=== PATIENT | female | born 1985 | race Caucasian/White ===

== ENCOUNTER 2017-08-13 19:13 | Emergency (ER) | payer OTHER ==
[~2017-08-13] VITALS: Ht 162.6 cm; Wt 81.7 kg
[~2017-08-13 19:13] MED LIST: ALBU90OI INH; ALPR1 PO; AMOX500 PO; ARIP10 PO; ARIPIPRAZOLE PO; ATOM60; BENZ100A PO; BUPR75 PO; BUSP15; CEPH500 PO; CIPR500 PO; CITA20 PO; CLON1; CLON1 PO; Cleocin HCl300 MG PO; DOXY100 PO; DULO30 PO; DULO60; EFFEXOR XR; ENOX40I SC; GABA100 PO; GABA300 PO; HYDACE10B PO; HYDACE5 PO; HYDACE5325 PO; HYDR1TAB94 PO; IBUP800 PO; Keflex500 MG PO; LAMO100 PO; LAMO25; LAMO25 PO; LORA1 PO; METERG.2 PO; METH10 PO; METH40 PO; METPRE4DP PO; MULVITMINE; NAPR220 PO; NAPR500 PO; NAPR550 PO; NICO21TP TOP; Naprosyn500 MG PO; Neurontin 300300 MG PO; OXYACE5T PO; PARO20 PO; PENVK250 PO; PENVK500 PO; PRED10 PO; PRED20 PO; Phenergan25 M1 PO; RANI150 PO; RXPENVK250 PO; RXTRAM50 PO; SUBOXONE 2 MG-1 EACH SL; SUBOXONE 8 MG-1 EACH SL; SULTRIDS PO; SULTRISS PO; Subutex; TOPI100 PO; TOPI25 PO; TRAM50 PO; TRAZ100; TRAZ100 PO; Ultram50 MG PO; VENL150ER; VENL150ER PO; VENL25; VENL75 PO; VENL75ER; VENL75ER PO; Veetids 500500 MG PO; [UNRECOGNIZED DRUG - REMARK]
[2017-08-13] MEDS ORDERED: Amphetamine Sal20 MG PO (19:28)
[2017-08-13] MEDS ORDERED: GABA300 PO (19:29)
[2017-08-13 19:47] LABS: BASOPHILS ABSOLUTE AUTO 0.05 K/mm3 (0.00-0.23); BASOPHILS PERCENT AUTO 1 % (0-2); EOSINOPHILS ABSOLUTE AUTO 0.54 K/mm3 (0.00-0.68); EOSINOPHILS PERCENT AUTO 8 % (0-6); Hematocrit 32.9 % (33.0-51.0); Hemoglobin 9.9 g/dL (11.5-16.0); IMMATURE GRAN ABSOLUTE AUTO 0.01 K/mm3 (0.00-0.10); IMMATURE GRAN PERCENT AUTO 0 % (0-1); LYMPHOCYTES ABSOLUTE AUTO 2.04 K/mm3 (0.84-5.20); LYMPHOCYTES PERCENT AUTO 31 % (21-46); MONOCYTES PERCENT AUTO 11 % (4-13); Mean Corpuscular HGB Conc 30.1 g/dL (31.5-36.5); Mean Corpuscular Volume 80 fL (80-100); Mean Platelet Volume 11.1 fL (9.1-12.4); NEUTROPHILS ABSOLUTE AUTO 3.32 K/mm3 (1.96-9.15); NEUTROPHILS PERCENT AUTO 50 % (41-73); Platelet Count 229 K/mm3 (150-400); RDW Coefficient Variation 20.6 % (11.7-14.2); RDW Standard Deviation 59.6 fL (35.1-46.3); Red Blood Cell Count 4.13 M/mm3 (3.80-5.20); White Blood Cell Count 6.66 K/mm3 (4.00-11.30)
[2017-08-13 20:17] LABS: Alanine Aminotransfer (ALT/SGP 26 U/L (12-78); Albumin, Blood 3.6 g/dL (3.4-5.0); Alk Phos 79 U/L (50-136); Anion Gap 6 mmol/L (6-16); Aspartate Aminotrans (AST/SGOT 24 U/L (12-37); Bilirubin, Total 0.2 mg/dL (0.1-1.0); Blood Urea Nitrogen 13 mg/dL (8-24); Bun/Creatinine Ratio 15.9 (12.0-20.0); CO2, Blood 29 mmol/L (21-32); Calcium, Blood 8.7 mg/dL (8.5-10.1); Chloride, Blood 105 mmol/L (98-108); Creatinine, Blood 0.82 mg/dL (0.40-1.00); Globulin, Blood 3.5 g/dL (2.2-4.0); Glomerular Filtration Rate >60 (60-); Glucose, Blood 97 mg/dL (70-99); Potassium, Blood 3.6 mmol/L (3.5-5.5); Sodium, Blood 140 mmol/L (136-145); Total Protein, Blood 7.1 g/dL (6.4-8.2); Troponin I <0.015 ng/mL (0.000-0.040)
[2017-08-13] MEDS ORDERED: Zantac150 MG PO (20:43)
== END 2017-08-13 20:55 | disposition home or self-care (01) ==
LOC: ER 19:13
PROVIDERS: Emergency Medicine
DX: R07.9 Chest pain, unspecified (principal); F41.0 Panic disorder [episodic paroxysmal anxiety]; K21.9 Gastro-esophageal reflux disease without esophagitis; F17.210 Nicotine dependence, cigarettes, uncomplicated; Z79.899 Other long term (current) drug therapy
CPT/HCPCS: 36415; 71046; 80053; 84484; 85025; 93005; 93010; 99283

== ENCOUNTER 2017-10-23 12:27 | Emergency (ER) | payer OTHER ==
[~2017-10-23 12:27] MED LIST changes: +Amphetamine Sal20 MG PO; +Zantac150 MG PO
== END 2017-10-23 13:05 | disposition left against medical advice (07) ==
LOC: ER 12:27
DX: Z53.21 Procedure and treatment not carried out due to patient leaving prior to being seen by health care provider (principal)

== ENCOUNTER 2018-08-28 14:11 | Emergency (ER) | payer OTHER ==
[~2018-08-28] VITALS: Ht 162.6 cm; Wt 86.2 kg
[2018-08-28] MEDS ORDERED: LAMO25 (15:08)
[2018-08-28] MEDS ORDERED: SUBOXONE 8 MG-1 EACH SL (15:08)
[2018-08-28] MEDS ORDERED: TROKENDI XR25 MG (15:09)
[2018-08-28] MEDS ORDERED: ALBU90OI INH (15:48)
[2018-08-28] MEDS ORDERED: Voltaren100 GM TOP (15:48)
[2018-08-28] MEDS ORDERED: Prednisone20 MG PO (15:48)
== END 2018-08-28 16:03 | disposition home or self-care (01) ==
LOC: ER 14:11
DX: R05 Cough (principal); Z79.899 Other long term (current) drug therapy; F41.9 Anxiety disorder, unspecified; F17.210 Nicotine dependence, cigarettes, uncomplicated
CPT/HCPCS: 71046; 93005; 93010; 99283-25

== ENCOUNTER → 2018-08-30 | Outpatient (CLI) | payer OTHER ==
[~2018-08-30] MED LIST changes: +Prednisone20 MG PO; +TROKENDI XR25 MG; +Voltaren100 GM TOP
[2018-08-30 15:42] LABS: BASOPHILS ABSOLUTE AUTO 0.05 K/mm3 (0.00-0.23); BASOPHILS PERCENT AUTO 1 % (0-2); EOSINOPHILS ABSOLUTE AUTO 0.27 K/mm3 (0.00-0.68); EOSINOPHILS PERCENT AUTO 4 % (0-6); Hematocrit 36.3 % (33.0-51.0); Hemoglobin 12.2 g/dL (11.5-16.0); IMMATURE GRAN ABSOLUTE AUTO 0.01 K/mm3 (0.00-0.10); IMMATURE GRAN PERCENT AUTO 0 % (0-1); LYMPHOCYTES ABSOLUTE AUTO 2.59 K/mm3 (0.84-5.20); LYMPHOCYTES PERCENT AUTO 41 % (21-46); MONOCYTES ABSOLUTE AUTO 0.52 K/mm3 (0.16-1.47); MONOCYTES PERCENT AUTO 8 % (4-13); Mean Corpuscular HGB 30.3 pg (26.0-34.0); Mean Corpuscular HGB Conc 33.6 g/dL (31.5-36.5); Mean Corpuscular Volume 90 fL (80-100); Mean Platelet Volume 11.4 fL (9.1-12.4); NEUTROPHILS ABSOLUTE AUTO 2.83 K/mm3 (1.96-9.15); NEUTROPHILS PERCENT AUTO 45 % (41-73); Platelet Count 210 K/mm3 (150-400); RDW Coefficient Variation 13.2 % (11.7-14.2); RDW Standard Deviation 43.5 fL (35.1-46.3); Red Blood Cell Count 4.03 M/mm3 (3.80-5.20); White Blood Cell Count 6.27 K/mm3 (4.00-11.30)
[2018-08-30 15:55] LABS: Anion Gap 11 mmol/L (6-16); Blood Urea Nitrogen 6 mg/dL (8-24); Bun/Creatinine Ratio 7.3 (12.0-20.0); CO2, Blood 25 mmol/L (21-32); Calcium, Blood 8.2 mg/dL (8.5-10.1); Chloride, Blood 107 mmol/L (98-108); Creatinine, Blood 0.82 mg/dL (0.40-1.00); Glomerular Filtration Rate >60 (60-); Glucose, Blood 95 mg/dL (70-99); Potassium, Blood 3.4 mmol/L (3.5-5.5); Sodium, Blood 143 mmol/L (136-145); Troponin I <0.015 ng/mL (0.000-0.040)
== END | disposition home or self-care (01) ==
LOC: LAB SHORT 15:36 → LAB EV 15:36
PROVIDERS: Family Medicine
DX: R07.9 Chest pain, unspecified (principal)
CPT/HCPCS: 80048; 84484; 85025; 85379

== ENCOUNTER 2018-10-08 16:07 | Emergency (ER) | payer OTHER ==
[~2018-10-08] VITALS: Ht 162.6 cm; Wt 81.7 kg
== END 2018-10-08 18:16 | disposition left against medical advice (07) ==
LOC: ER 16:07
DX: Z53.21 Procedure and treatment not carried out due to patient leaving prior to being seen by health care provider (principal)
CPT/HCPCS: 71046

== ENCOUNTER 2018-10-30 22:37 | Emergency (ER) | payer OTHER ==
[~2018-10-30] VITALS: Ht 162.6 cm; Wt 83.5 kg
[2018-10-30] MEDS ORDERED: Abilify2 MG (22:55)
[2018-10-30] MEDS ORDERED: Vyvanse20 MG (22:55)
[2018-10-30] MEDS ORDERED: PROM25 (22:56)
[2018-10-30] MEDS ORDERED: CEPH500 PO (23:04)
== END 2018-10-30 23:19 | disposition home or self-care (01) ==
LOC: ER 22:37
DX: L03.211 Cellulitis of face (principal); F42.4 Excoriation (skin-picking) disorder; Z79.899 Other long term (current) drug therapy; F41.9 Anxiety disorder, unspecified; F17.210 Nicotine dependence, cigarettes, uncomplicated
CPT/HCPCS: 99282

== ENCOUNTER 2018-11-07 22:18 | Emergency (ER) | payer OTHER ==
[~2018-11-07] VITALS: Ht 162.6 cm; Wt 81.7 kg
[~2018-11-07 22:18] MED LIST changes: +Abilify2 MG; +PROM25; +Vyvanse20 MG
[2018-11-07] MEDS ORDERED: CEPH500 PO (23:16)
[2018-11-09] MEDS ORDERED: SUBOXONE 8 MG-1 EACH PO (08:47)
[2018-11-09] MEDS ORDERED: PROM25 PO (08:47)
[2018-11-09] MEDS ORDERED: ARIP15 PO (08:47)
[2018-11-09] MEDS ORDERED: TOPI100 PO (08:47)
[2018-11-09] MEDS ORDERED: LAMO25 (08:48)
== END 2018-11-08 01:14 | disposition home or self-care (01) ==
LOC: ER 22:18
DX: L03.211 Cellulitis of face (principal); Z79.899 Other long term (current) drug therapy; F41.9 Anxiety disorder, unspecified; F17.210 Nicotine dependence, cigarettes, uncomplicated
CPT/HCPCS: 96365; 99283-25; J0696; J7030

== ENCOUNTER 2018-11-09 08:25 | Emergency (ER) | payer OTHER ==
[~2018-11-09] VITALS: Ht 162.6 cm; Wt 72.6 kg
[2018-11-09] MEDS ORDERED: SUBOXONE 8 MG-1 EACH PO (08:47)
[2018-11-09] MEDS ORDERED: PROM25 PO (08:47)
[2018-11-09] MEDS ORDERED: TOPI100 PO (08:47)
[2018-11-09] MEDS ORDERED: ARIP15 PO (08:47)
[2018-11-09] MEDS ORDERED: LAMO25 (08:48)
== END 2018-11-09 09:18 | disposition home or self-care (01) ==
LOC: ER 08:25
DX: S01.102D Unspecified open wound of left eyelid and periocular area, subsequent encounter (principal); F41.9 Anxiety disorder, unspecified; F17.210 Nicotine dependence, cigarettes, uncomplicated; Z79.899 Other long term (current) drug therapy; X58.XXXD Exposure to other specified factors, subsequent encounter
CPT/HCPCS: 99282

== ENCOUNTER 2018-12-06 21:59 | Emergency (ER) | payer OTHER ==
[~2018-12-06] VITALS: Ht 162.6 cm; Wt 81.7 kg
[~2018-12-06 21:59] MED LIST changes: +ARIP15 PO; +PROM25 PO; +SUBOXONE 8 MG-1 EACH PO
[2018-12-07] MEDS ORDERED: Bactrim Ds Tab1 EACH PO (00:31)
== END 2018-12-07 00:46 | disposition home or self-care (01) ==
LOC: ER 21:59
DX: L08.9 Local infection of the skin and subcutaneous tissue, unspecified (principal); F41.9 Anxiety disorder, unspecified; F17.210 Nicotine dependence, cigarettes, uncomplicated; Z79.899 Other long term (current) drug therapy
CPT/HCPCS: 99282

== ENCOUNTER 2018-12-15 12:37 | Emergency (ER) | payer OTHER ==
[~2018-12-15] VITALS: Ht 162.6 cm; Wt 83.9 kg
[~2018-12-15 12:37] MED LIST changes: +Bactrim Ds Tab1 EACH PO
[2018-12-15] MEDS ORDERED: EMVERM100 MG PO (14:17)
== END 2018-12-15 15:16 | disposition home or self-care (01) ==
LOC: ER 12:37
DX: B83.9 Helminthiasis, unspecified (principal); F15.90 Other stimulant use, unspecified, uncomplicated; Z79.899 Other long term (current) drug therapy; F41.9 Anxiety disorder, unspecified; F17.210 Nicotine dependence, cigarettes, uncomplicated
CPT/HCPCS: 99282

== ENCOUNTER → 2019-03-26 | Outpatient (CLI) | payer OTHER ==
[~2019-03-26] MED LIST changes: +AMPDEX5 PO; +BUPRENORPHINE HC8 MG SL; +Cleocin HCl150 MG PO; +EMVERM100 MG PO; +FERSU300 PO; +METHYLERGO0.2 MG/1 M PO; +MUPIROCIN1 GM TOP; +Vyvanse70 MG PO
[2019-03-26 18:35] LABS: U Amphetamine Screen DETECTED; U Barbituate Screen Not Detected; U Benzodiazapine Screen Not Detected; U Buprenorphine Screen DETECTED; U Cannabinoids Screen Not Detected; U Cocaine Screen Not Detected; U Methadone Screen Not Detected; U Methamphetamine Screen Not Detected; U Opiates Screen Not Detected; U Oxycodone Screen Not Detected; U Phencyclidine Screen Not Detected; U Propoxyphene Screen Not Detected
== END ==
LOC: EDSTATUS 12:08 → LAB 17:51 → LAB SHORT 17:51
PROVIDERS: Student in an Organized Health Care Education/Training Program
DX: Z51.81 Encounter for therapeutic drug level monitoring (principal); Z79.899 Other long term (current) drug therapy

== ENCOUNTER 2019-04-02 11:55 | Emergency (ER) | payer OTHER ==
[~2019-04-02] VITALS: Ht 162.6 cm; Wt 92.5 kg
[~2019-04-02 11:55] MED LIST changes: -AMPDEX5 PO; -BUPRENORPHINE HC8 MG SL; -Cleocin HCl150 MG PO; -FERSU300 PO; -METHYLERGO0.2 MG/1 M PO; -MUPIROCIN1 GM TOP; -Vyvanse70 MG PO
[2019-04-02] MEDS ORDERED: Cleocin HCl150 MG PO (13:32)
[2019-04-02] MEDS ORDERED: MUPIROCIN1 GM TOP (13:32)
== END 2019-04-02 13:42 | disposition home or self-care (01) ==
LOC: ER 11:55
DX: O99.711 Diseases of the skin and subcutaneous tissue complicating pregnancy, first trimester (principal); L01.00 Impetigo, unspecified; Z3A.13 13 weeks gestation of pregnancy; Z88.8 Allergy status to other drugs, medicaments and biological substances; Z79.899 Other long term (current) drug therapy; O99.341 Other mental disorders complicating pregnancy, first trimester; F41.9 Anxiety disorder, unspecified; O99.331 Smoking (tobacco) complicating pregnancy, first trimester; F17.210 Nicotine dependence, cigarettes, uncomplicated
CPT/HCPCS: 99282

== ENCOUNTER 2019-04-17 14:45 | Inpatient (IN) | payer OTHER ==
[~2019-04-17] VITALS: Ht 162.6 cm; Wt 88.5 kg
[~2019-04-17 14:45] MED LIST changes: +Cleocin HCl150 MG PO; +MUPIROCIN1 GM TOP
--- NOTE | 2019-04-17 15:05 | NUR ---
wonderly texted to call, no called, got ran of norberto painter cnm. she is aware we do not have blood type or labs on patient, she is aware pt is refusing to take any medication until it is verified by ultrasound one more time.
[2019-04-17] MEDS ORDERED: BUPRENORPHINE HC8 MG SL (16:00)
[2019-04-17] MEDS ORDERED: GABA300 PO (16:01)
[2019-04-17] MEDS ORDERED: Vyvanse70 MG PO (16:02)
[2019-04-17] MEDS ORDERED: VENL75ER PO (16:03)
--- NOTE | 2019-04-17 16:12 | NUR ---
DR ERICKSON AT BEDSIDE TO DO ULTRASOUND. REPORTS CH CNM WILL PLACE MEDICATIN ORDERS IN FOR PT FOR HER DAILY SCHEDULED MEDICATION
--- NOTE | 2019-04-17 16:13 | NUR ---
PT HAD TWO ULTRASOUNDS IN OFFICE WITH DR ERICKSON AND [facility] AND USING [facility] ULTRASOUND, DR ERICKSON CONFIRMS WITH [facility] ULTRASOUND THAT THERE IS NO HEART BEAT
--- NOTE | 2019-04-17 16:52 | NUR ---
unable to place an IV, tried by 2 rn, pt has a hx of iv drug use, called for powerglide from medical floor procedure nurse to come down and place one.
[2019-04-17] MEDS ORDERED: ALBU90OI INH (17:29)
--- NOTE | 2019-04-17 18:19 | NUR ---
powerglide in, encouraged pt to void then to start cytotec, pt reports going outside to smoke then will agree to cytotec.,
--- NOTE | 2019-04-17 18:26 | NUR ---
hemorrhage assessment not done, dont have labs back yet, but would be a low risk unless plt count is low then a med risk
[2019-04-17 18:27] LABS: BASOPHILS ABSOLUTE AUTO 0.06 K/mm3 (0.00-0.23); BASOPHILS PERCENT AUTO 1 % (0-2); EOSINOPHILS ABSOLUTE AUTO 0.55 K/mm3 (0.00-0.68); EOSINOPHILS PERCENT AUTO 6 % (0-6); Hematocrit 36.7 % (33.0-51.0); IMMATURE GRAN ABSOLUTE AUTO 0.03 K/mm3 (0.00-0.10); IMMATURE GRAN PERCENT AUTO 0 % (0-1); LYMPHOCYTES ABSOLUTE AUTO 2.02 K/mm3 (0.84-5.20); LYMPHOCYTES PERCENT AUTO 20 % (21-46); MONOCYTES PERCENT AUTO 8 % (4-13); Mean Corpuscular HGB 31.3 pg (26.0-34.0); Mean Corpuscular HGB Conc 32.7 g/dL (31.5-36.5); Mean Corpuscular Volume 96 fL (80-100); Mean Platelet Volume 10.8 fL (9.1-12.4); NEUTROPHILS ABSOLUTE AUTO 6.55 K/mm3 (1.96-9.15); NEUTROPHILS PERCENT AUTO 65 % (41-73); Platelet Count 229 K/mm3 (150-400); RDW Coefficient Variation 13.2 % (11.7-14.2); RDW Standard Deviation 46.2 fL (35.1-46.3); Red Blood Cell Count 3.84 M/mm3 (3.80-5.20); White Blood Cell Count 10.01 K/mm3 (4.00-11.30)
--- NOTE | 2019-04-17 18:30 | NUR ---
CH WAS UPDATED TWICE ON THE FLOOR ABOUT NOT HAVING MEDS STARTED YET DUE TO NO IV ACCESS AND THAT ICU WAS COMING TO PLACE ONE.
--- NOTE | 2019-04-17 20:23 | NUR ---
2006-BETH IN ROOM TO DISCUSS PAIN WITH PT. PT TO TRY JACUZZI TUB. WILL RE-EVALUATE PAIN AND NEED FOR OTHER PAIN RELIEF TX. VE DONE BY BETH, CERVIX CLOSED AND THICK.
--- NOTE | 2019-04-17 21:36 | NUR ---
CYTOTEC PLACED BY ANASTASIYA Gregory CNM AT 3 HOURS PER HER REQUEST.
--- NOTE | 2019-04-17 22:25 | NUR ---
2144- PT HAD REQUESTED SOMETHING FOR PAIN. REPORTS PAIN 11/23. PT DECLINES EPIDURAL. RECEIVED VERBAL ORDER FOR TORADOL. INFORMED PT I WAS BRINGING HER SOME TORADOL AND PT BECAME VERY UPSET AND USING FOUL LANGUAGE. 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 I ASKED PT WHAT PAIN MEDICATION HAS WORKED WELL FOR HER IN THE PAST AND PT WOULD NOT GIVE AN ANSWER. PT HAD THREATENED TO GO HOME AND THAT SHE WANTED TO JUST RIP THIS BABY OUT OF HER. SPOUSE IN ROOM AND HELPED TO CALM PT DOWN. PT FINALLY TOOK TORADOL 20 MINUTES LATER AFTER CALMING DOWN. PT APOLOGETIC OVER HER OUTBURST. PT STATES SHE DOESNT CARE WHAT PAIN MEDICATION WE GIVE HER AND THAT SHE JUST DOESN'T WANT TO FEEL THE PAIN. ADVISED PT THAT EVEN WITH MY STRONGEST PAIN MEDICATION SHE WILL ONLY HAVE TEMPORARY RELIEF AND THE ONLY WAY TO POSSIBLY TAKE THE PAIN COMPLETELY AWAY IS TO HAVE AN EPIDURAL. PT ACKNOWLEDGED INFORMATION BUT STILL REFUSES EPIDURAL.
--- NOTE | 2019-04-18 01:05 | NUR ---
PT REPORTS 7/10 PAIN HOWEVER PT ABLE TO WALK OUTSIDE WITH SPOUSE TO SMOKE. PT WANTS MORE MEDICATION FOR PAIN. CNM NOTIFIED. ORDERS GIVEN
--- NOTE | 2019-04-18 03:29 | NUR ---
PROVIDER ADVISED WHEN LAST DOSE OF FENTANYL WAS GIVEN. OK TO GIVE ANOTHER DOSE AT THIS TIME
--- NOTE | 2019-04-18 06:38 | NUR ---
PT EATING CEREAL AND MUFFINS.
[2019-04-18 08:13] LABS: BASOPHILS ABSOLUTE AUTO 0.04 K/mm3 (0.00-0.23); BASOPHILS PERCENT AUTO 0 % (0-2); EOSINOPHILS ABSOLUTE AUTO 0.36 K/mm3 (0.00-0.68); EOSINOPHILS PERCENT AUTO 4 % (0-6); Hematocrit 33.9 % (33.0-51.0); Hemoglobin 11.1 g/dL (11.5-16.0); IMMATURE GRAN ABSOLUTE AUTO 0.03 K/mm3 (0.00-0.10); IMMATURE GRAN PERCENT AUTO 0 % (0-1); LYMPHOCYTES ABSOLUTE AUTO 1.77 K/mm3 (0.84-5.20); LYMPHOCYTES PERCENT AUTO 18 % (21-46); MONOCYTES ABSOLUTE AUTO 0.65 K/mm3 (0.16-1.47); MONOCYTES PERCENT AUTO 7 % (4-13); Mean Corpuscular HGB 31.4 pg (26.0-34.0); Mean Corpuscular HGB Conc 32.7 g/dL (31.5-36.5); Mean Corpuscular Volume 96 fL (80-100); Mean Platelet Volume 10.9 fL (9.1-12.4); NEUTROPHILS ABSOLUTE AUTO 6.76 K/mm3 (1.96-9.15); NEUTROPHILS PERCENT AUTO 70 % (41-73); Platelet Count 198 K/mm3 (150-400); RDW Standard Deviation 45.8 fL (35.1-46.3); Red Blood Cell Count 3.53 M/mm3 (3.80-5.20); White Blood Cell Count 9.61 K/mm3 (4.00-11.30)
--- NOTE | 2019-04-18 10:30 | NUR ---
PER PT REFUSES ABX TO BE HUNG NOW, WANTS TO GO OUTSIDE FIRST
[2019-04-18] MEDS ORDERED: Bactrim Ds Tab1 EACH PO (15:00)
== END 2019-04-18 15:00 | disposition home or self-care (01) | DRG 806 ==
LOC: BC 14:45 → OBS 14:45 → BC 15:04
PROVIDERS: Nurse Practitioner Obstetrics & Gynecology; ADMIT Obstetrics & Gynecology
PROC: 10E0XZZ Delivery of Products of Conception, External Approach (ICD-10-PCS; principal; 2019-04-18)
PROC: 10D17Z9 Manual Extraction of Products of Conception, Retained, Via Natural or Artificial Opening (ICD-10-PCS; 2019-04-18)
PROC: 3E0P7VZ Introduction of Hormone into Female Reproductive, Via Natural or Artificial Opening (ICD-10-PCS; 2019-04-18)
DX: O36.4XX0 Maternal care for intrauterine death, not applicable or unspecified (principal); O72.2 Delayed and secondary postpartum hemorrhage; Z37.1 Single stillbirth; Z3A.13 13 weeks gestation of pregnancy
CPT/HCPCS: 85025; 86850; 86900; 86901; A9270; C1751; J0690; J1885; J2210; J2405; J2590; J3010; J7120

== ENCOUNTER 2019-04-28 20:59 | Observation (INO) | payer OTHER ==
[~2019-04-28] VITALS: Ht 162.6 cm; Wt 90.7 kg
[~2019-04-28 20:59] MED LIST changes: +BUPRENORPHINE HC8 MG SL; +Vyvanse70 MG PO
[2019-04-28 22:41] LABS: BASOPHILS ABSOLUTE AUTO 0.04 K/mm3 (0.00-0.23); BASOPHILS PERCENT AUTO 0 % (0-2); EOSINOPHILS ABSOLUTE AUTO 0.34 K/mm3 (0.00-0.68); EOSINOPHILS PERCENT AUTO 4 % (0-6); Hematocrit 27.6 % (33.0-51.0); Hemoglobin 8.8 g/dL (11.5-16.0); IMMATURE GRAN ABSOLUTE AUTO 0.03 K/mm3 (0.00-0.10); IMMATURE GRAN PERCENT AUTO 0 % (0-1); LYMPHOCYTES ABSOLUTE AUTO 1.46 K/mm3 (0.84-5.20); LYMPHOCYTES PERCENT AUTO 15 % (21-46); MONOCYTES PERCENT AUTO 6 % (4-13); Mean Corpuscular HGB Conc 31.9 g/dL (31.5-36.5); Mean Corpuscular Volume 97 fL (80-100); Mean Platelet Volume 10.2 fL (9.1-12.4); NEUTROPHILS ABSOLUTE AUTO 7.02 K/mm3 (1.96-9.15); NEUTROPHILS PERCENT AUTO 74 % (41-73); Platelet Count 237 K/mm3 (150-400); RDW Standard Deviation 46.3 fL (35.1-46.3); Red Blood Cell Count 2.84 M/mm3 (3.80-5.20); White Blood Cell Count 9.49 K/mm3 (4.00-11.30)
[2019-04-28 22:55] LABS: Calcium, Ionized (POC) 1.16 mmol/L (1.10-1.46); Chloride (POC) 103 mmol/L (98-108); Creatinine (POC) 0.7 mg/dL (0.6-1.0); Glucose (ISTAT POC) 98 mg/dL (70-99); Hemoglobin (POC) 8.5 g/dL (12.0-16.0); Potassium (POC) 4.4 mmol/L (3.5-5.5); Sodium (POC) 136 mmol/L (135-148); Total CO2 (POC) 25 mmol/L (21-32)
[2019-04-28 22:59] LABS: Alanine Aminotransfer (ALT/SGP 33 U/L (12-78); Albumin, Blood 3.5 g/dL (3.4-5.0); Alk Phos 72 U/L (50-136); Anion Gap 6 mmol/L (6-16); Aspartate Aminotrans (AST/SGOT 26 U/L (12-37); Bilirubin, Total 0.2 mg/dL (0.1-1.0); Blood Urea Nitrogen 11 mg/dL (8-24); Bun/Creatinine Ratio 14.8 (12.0-20.0); CO2, Blood 26 mmol/L (21-32); Calcium, Blood 8.7 mg/dL (8.5-10.1); Chloride, Blood 107 mmol/L (98-108); Creatinine, Blood 0.74 mg/dL (0.40-1.00); Globulin, Blood 3.4 g/dL (2.2-4.0); Glomerular Filtration Rate >60 (60-); Glucose, Blood 94 mg/dL (70-99); Potassium, Blood 4.4 mmol/L (3.5-5.5); Sodium, Blood 139 mmol/L (136-145); Total Protein, Blood 6.9 g/dL (6.4-8.2)
[2019-04-29] MEDS ORDERED: AMPDEX5 PO (02:03)
--- NOTE | 2019-04-29 03:02 | NUR ---
PT INSISTED ON GOING OUT TO SMOKE STATING THAT SHE "HAD TO". THIS NURSE DISCUSSED HER CONCERNS ABOUT JING'S SAFETY DUE TO HER DROWSINESS AND BLEEDING. JING INSISTED THAT SHE WAS "FINE" AND REPEATEDLY SAID "DON'T WORRY ABOUT ME". SHE DID GIVE THIS NURSE HER CELL PHONE NUMBER. PROVIDER ORDERS OF BEDREST W/BATHROOM PRIVLIGES AND NPO DISCUSSED W/PT.
--- NOTE | 2019-04-29 06:18 | NUR ---
SHIFT SUMMARY: JING IS A NEW ADMIT FROM THE ER THIS SHIFT. SHE REPORTS HAVING HAD A MISCARRIAGE 04/18/19 FOR WHICH SHE WAS SEEN BY DR. ERICKSON FOR A RETAINED PLACENTA. SHE STATED THAT HE REMOVED THE PLACENTA WHICH CAME OUT IN "CHUNKS". SHE CAME TO THE ER FOR HEAVY BLEEDING. A DIC WAS PERFORMED AT THE BEDSIDE IN THE ER AND JING REPORTS THAT THE BLEEDING HAS BEEN SIGNIFICANTLY DECREASED SINCE THAT TIME. SHE HAS COMPLAINED OF NAUSEA AND HEARTBURN THIS SHIFT. SHE IS RESTING IN BED WITH HER EYES CLOSED AND SNORING RESPIRATIONS. CALL LIGHT IS IN REACH.
[2019-04-29 07:05] LABS: BASOPHILS ABSOLUTE AUTO 0.04 K/mm3 (0.00-0.23); BASOPHILS PERCENT AUTO 1 % (0-2); EOSINOPHILS ABSOLUTE AUTO 0.35 K/mm3 (0.00-0.68); EOSINOPHILS PERCENT AUTO 5 % (0-6); Hematocrit 26.3 % (33.0-51.0); IMMATURE GRAN ABSOLUTE AUTO 0.02 K/mm3 (0.00-0.10); IMMATURE GRAN PERCENT AUTO 0 % (0-1); LYMPHOCYTES ABSOLUTE AUTO 1.52 K/mm3 (0.84-5.20); LYMPHOCYTES PERCENT AUTO 21 % (21-46); MONOCYTES PERCENT AUTO 8 % (4-13); Mean Corpuscular HGB 30.2 pg (26.0-34.0); Mean Corpuscular HGB Conc 30.4 g/dL (31.5-36.5); Mean Corpuscular Volume 99 fL (80-100); Mean Platelet Volume 10.3 fL (9.1-12.4); NEUTROPHILS ABSOLUTE AUTO 4.69 K/mm3 (1.96-9.15); NEUTROPHILS PERCENT AUTO 65 % (41-73); Platelet Count 203 K/mm3 (150-400); RDW Coefficient Variation 13.1 % (11.7-14.2); RDW Standard Deviation 46.9 fL (35.1-46.3); Red Blood Cell Count 2.65 M/mm3 (3.80-5.20); White Blood Cell Count 7.22 K/mm3 (4.00-11.30)
--- NOTE | 2019-04-29 08:32 | NUR ---
UPON ASSESSMENT PT HAS REMOVED TELE. PT REFUSES PUTTING BACK ON AT THIS TIME. FABRICATION MIG WELDER MADE AWARE
[2019-04-29] MEDS ORDERED: DOXY100 PO (10:22)
[2019-04-29] MEDS ORDERED: FERSU300 PO (10:25)
[2019-04-29] MEDS ORDERED: METHYLERGO0.2 MG/1 M PO (10:28)
--- NOTE | 2019-04-29 10:43 | NUR ---
WHILE FINALIZING PT DISCHARGE, PT LEFT HOSPITAL AMA. PT DID NOT SIGN AMA PAPERWORK, THIS RN UNABLE TO REVIEW DISCHARGE INSTUCTIONS WITH PACKET. IV WAS DC'D. PT DID NOT RECIEVE SCRIPT. WILL MAKE DR. MALAGON AWARE.
== END 2019-04-29 10:43 | disposition left against medical advice (07) ==
LOC: ER 20:59 → SURS 21:00
PROVIDERS: Emergency Medicine; Physician Assistant; ADMIT Family Medicine
DX: O02.1 Missed abortion (principal); F31.9 Bipolar disorder, unspecified; F41.9 Anxiety disorder, unspecified; G43.909 Migraine, unspecified, not intractable, without status migrainosus; D64.9 Anemia, unspecified; F43.10 Post-traumatic stress disorder, unspecified; F17.200 Nicotine dependence, unspecified, uncomplicated; Z88.8 Allergy status to other drugs, medicaments and biological substances; Z79.899 Other long term (current) drug therapy; Z79.51 Long term (current) use of inhaled steroids
CPT/HCPCS: 36415; 76856; 80047; 80053; 85014; 85025; 86850; 86900; 86901; 86923; 96361; 96374; 96375; 96376; 99285-25; G0378; J2060; J2405; J3010; J7030; J7120

== ENCOUNTER → 2019-05-21 | Outpatient (CLI) | payer OTHER ==
[~2019-05-21] MED LIST changes: +AMPDEX5 PO; +FERSU300 PO; +METHYLERGO0.2 MG/1 M PO
== END ==
LOC: LAB 09:49 → LAB SHORT 09:49
DX: Z51.81 Encounter for therapeutic drug level monitoring (principal); Z79.899 Other long term (current) drug therapy
CPT/HCPCS: G0480

== ENCOUNTER → 2019-06-27 | Outpatient (CLI) | payer OTHER ==
[2019-06-28 14:25] LABS: U Amphetamine Screen DETECTED
[2019-06-28 14:26] LABS: U Barbituate Screen Not Detected; U Benzodiazapine Screen DETECTED; U Buprenorphine Screen DETECTED; U Cannabinoids Screen Not Detected; U Cocaine Screen Not Detected; U Methadone Screen Not Detected; U Methamphetamine Screen Not Detected; U Opiates Screen Not Detected; U Oxycodone Screen Not Detected; U Phencyclidine Screen Not Detected; U Propoxyphene Screen Not Detected
== END ==
LOC: LAB 17:30 → LAB SHORT 17:30
PROVIDERS: Nurse Practitioner Family
DX: Z02.83 Encounter for blood-alcohol and blood-drug test (principal)
CPT/HCPCS: G0480

== ENCOUNTER → 2019-07-16 | Outpatient (CLI) | payer OTHER | LOC: LAB SHORT 12:19 → LAB 12:19 | DX: K59.00 Constipation, unspecified (principal); R19.7 Diarrhea, unspecified; R10.9 Unspecified abdominal pain; Z20.7 Contact with and (suspected) exposure to pediculosis, acariasis and other infestations | CPT/HCPCS: 87177; 87209 ==

== ENCOUNTER → 2019-07-20 | Outpatient (CLI) | payer OTHER | LOC: LAB SHORT 10:00 → LAB 10:00 → LAB SHORT 07-22 10:46 | DX: R19.7 Diarrhea, unspecified (principal); R10.9 Unspecified abdominal pain; K59.00 Constipation, unspecified; Z20.7 Contact with and (suspected) exposure to pediculosis, acariasis and other infestations | CPT/HCPCS: 87177; 87209 ==

== ENCOUNTER → 2019-07-21 | Outpatient (CLI) | payer OTHER | LOC: LAB 09:20 → LAB SHORT 09:20 → LAB FUT 07-15 15:05 | DX: R19.7 Diarrhea, unspecified (principal); R10.9 Unspecified abdominal pain; K59.00 Constipation, unspecified; Z20.7 Contact with and (suspected) exposure to pediculosis, acariasis and other infestations | CPT/HCPCS: 87177; 87209 ==

== ENCOUNTER 2019-08-27 21:32 | Emergency (ER) | payer OTHER ==
[~2019-08-27] VITALS: Ht 162.6 cm; Wt 86.2 kg
== END 2019-08-27 23:51 | disposition home or self-care (01) ==
LOC: ER 21:32
DX: B88.9 Infestation, unspecified (principal); Z88.8 Allergy status to other drugs, medicaments and biological substances; Z79.899 Other long term (current) drug therapy; F41.9 Anxiety disorder, unspecified; F17.210 Nicotine dependence, cigarettes, uncomplicated

== ENCOUNTER → 2019-10-22 | Outpatient (CLI) | payer OTHER | LOC: PLD 15:19 → LAB SHORT 15:19 | DX: R23.4 Changes in skin texture (principal) | CPT/HCPCS: 88305; 88312 ==

== ENCOUNTER → 2019-12-17 | Outpatient (CLI) | payer OTHER | END | disposition home or self-care (01) | LOC: LAB 17:37 → LAB SHORT 17:37 | DX: L08.9 Local infection of the skin and subcutaneous tissue, unspecified (principal); L02.821 Furuncle of head [any part, except face]; D22.9 Melanocytic nevi, unspecified; L30.8 Other specified dermatitis | CPT/HCPCS: 87070; 87077; 87147; 87186; 87205 ==

== ENCOUNTER 2019-12-25 20:17 | Emergency (ER) | payer OTHER ==
[~2019-12-25] VITALS: Ht 162.6 cm; Wt 86.2 kg
[2019-12-25] MEDS ORDERED: SULTRIDS PO (21:25)
== END 2019-12-25 21:34 | disposition home or self-care (01) ==
LOC: ER 20:17
DX: L98.499 Non-pressure chronic ulcer of skin of other sites with unspecified severity (principal); L30.9 Dermatitis, unspecified; Z86.14 Personal history of Methicillin resistant Staphylococcus aureus infection; F41.9 Anxiety disorder, unspecified; Z88.8 Allergy status to other drugs, medicaments and biological substances; Z79.899 Other long term (current) drug therapy; F17.210 Nicotine dependence, cigarettes, uncomplicated
CPT/HCPCS: 99282; A9270-GY

== ENCOUNTER → 2020-04-02 | Outpatient (CLI) | payer OTHER ==
[2020-04-02 13:42] LABS: Source, Urine Clean Catch
[2020-04-02 16:36] LABS: Bacteria Mod /hpf; Red Blood Cells, Urine 0-2 /hpf (0-2); Squamous Epithelial Cells Mod /hpf (Few)
[2020-04-02 16:45] LABS: U Amphetamine Screen Not Detected; U Barbituate Screen Not Detected; U Benzodiazapine Screen Not Detected; U Buprenorphine Screen DETECTED; U Cannabinoids Screen Not Detected; U Cocaine Screen Not Detected; U Methadone Screen Not Detected; U Methamphetamine Screen Not Detected; U Opiates Screen Not Detected; U Oxycodone Screen Not Detected; U Phencyclidine Screen Not Detected; U Propoxyphene Screen Not Detected
== END | disposition home or self-care (01) ==
LOC: LAB 13:33 → LAB SHORT 13:33
PROVIDERS: Advanced Practice Midwife
DX: Z34.81 Encounter for supervision of other normal pregnancy, first trimester (principal); Z86.14 Personal history of Methicillin resistant Staphylococcus aureus infection
CPT/HCPCS: 81015; 87081; 87086; G0480

== ENCOUNTER → 2020-04-23 | Outpatient (CLI) | payer OTHER ==
[~2020-04-23] MED LIST changes: +CLIN300 PO; +Norco 5-325 Ta1 EACH PO
[2020-04-26 22:07] LABS: CHLAMYDIA TRACHOMATIS, NAA Negative (Negative); NEISSERIA GONORRHOEAE, NAA Negative (Negative)
== END | disposition home or self-care (01) ==
LOC: LAB 19:52 → LAB SHORT 19:52
PROVIDERS: Advanced Practice Midwife
DX: Z11.3 Encounter for screening for infections with a predominantly sexual mode of transmission (principal)
CPT/HCPCS: 87491; 87591

== ENCOUNTER → 2020-05-03 | Outpatient (CLI) | payer OTHER ==
[2020-05-05 15:37] LABS: CORNONAVIRUS (COVID19) CSH-NRL Negative (Negative)
== END | disposition home or self-care (01) ==
LOC: LAB SHORT 15:56 → LAB EV 15:56
PROVIDERS: Physician Assistant
DX: R50.9 Fever, unspecified (principal); Z20.828 Contact with and (suspected) exposure to other viral communicable diseases
CPT/HCPCS: U0003

== ENCOUNTER 2020-05-14 08:29 | Emergency (ER) | payer OTHER ==
[~2020-05-14] VITALS: Ht 162.6 cm; Wt 93.9 kg
[~2020-05-14 08:29] MED LIST changes: -CLIN300 PO; -Norco 5-325 Ta1 EACH PO
[2020-05-14] MEDS ORDERED: VENL150ER PO (08:48)
[2020-05-14] MEDS ORDERED: Norco 5-325 Ta1 EACH PO (09:01)
[2020-05-14] MEDS ORDERED: PROM25 PO (09:01)
[2020-05-14] MEDS ORDERED: CLIN300 PO (09:01)
== END 2020-05-14 09:36 | disposition home or self-care (01) ==
LOC: ER 08:29
DX: O99.612 Diseases of the digestive system complicating pregnancy, second trimester (principal); K04.7 Periapical abscess without sinus; R11.0 Nausea; O99.332 Smoking (tobacco) complicating pregnancy, second trimester; F17.210 Nicotine dependence, cigarettes, uncomplicated; Z3A.15 15 weeks gestation of pregnancy
CPT/HCPCS: 99283; A9270-GY

== ENCOUNTER 2020-10-25 09:27 | Inpatient (IN) | payer OTHER ==
[~2020-10-25] VITALS: Ht 162.6 cm; Wt 98.0 kg
[~2020-10-25 09:27] MED LIST changes: +CLIN300 PO; +Norco 5-325 Ta1 EACH PO
[2020-10-25 10:24] LABS: Creatinine, Urine Random 81.7 mg/dL (27.00-270.00); Protein, Urine Random 23.3 mg/dL (0.0-11.9); Protein/Creat Ratio, Ur Random 0.3
[2020-10-25 10:26] LABS: Hematocrit 29.6 % (33.0-51.0); Hemoglobin 9.9 g/dL (11.5-16.0); Mean Corpuscular HGB 30.3 pg (26.0-34.0); Mean Corpuscular HGB Conc 33.4 g/dL (31.5-36.5); Mean Corpuscular Volume 91 fL (80-100); Mean Platelet Volume 11.8 fL (9.1-12.4); Platelet Count 252 K/mm3 (150-400); RDW Coefficient Variation 13.6 % (11.7-14.2); Red Blood Cell Count 3.27 M/mm3 (3.80-5.20)
[2020-10-25 10:46] LABS: Alanine Aminotransfer (ALT/SGP 20 U/L (12-78); Albumin, Blood 2.3 g/dL (3.4-5.0); Albumin/Globulin Ratio 0.6 (0.8-1.8); Alk Phos 182 U/L (50-136); Anion Gap 4 mmol/L (6-16); Aspartate Aminotrans (AST/SGOT 18 U/L (12-37); Bilirubin, Total 0.2 mg/dL (0.1-1.0); Blood Urea Nitrogen 4 mg/dL (8-24); Bun/Creatinine Ratio 6.2 (12.0-20.0); CO2, Blood 27 mmol/L (21-32); Chloride, Blood 109 mmol/L (98-108); Creatinine, Blood 0.65 mg/dL (0.40-1.00); Globulin, Blood 3.9 g/dL (2.2-4.0); Glomerular Filtration Rate >60 (60-); Glucose, Blood 95 mg/dL (70-99); Potassium, Blood 3.5 mmol/L (3.5-5.5); Sodium, Blood 140 mmol/L (136-145); Total Protein, Blood 6.2 g/dL (6.4-8.2)
[2020-10-25 11:09] LABS: LYMPHOCYTES ABSOLUTE MAN 1.88 K/mm3 (0.84-5.20); LYMPHOCYTES PERCENT MAN 19 % (21-46); NEUTROPHILS ABSOLUTE MAN 6.93 K/mm3 (1.96-9.15); SEG NEUTROPHILS PERCENT MAN 70 % (41-73); TOTAL CELLS COUNTED 100
[2020-10-25 11:10] LABS: BASOPHILS ABSOLUTE MAN 0.09 K/mm3 (0.00-0.23); BASOPHILS PERCENT MAN 1 % (0-2); EOSINOPHILS ABSOLUTE MAN 0.39 K/mm3 (0.00-0.68); EOSINOPHILS PERCENT MAN 4 % (0-6); MONOCYTES ABSOLUTE MAN 0.59 K/mm3 (0.16-1.47); MONOCYTES PERCENT MAN 6 % (4-13)
[2020-10-25] MEDS ORDERED: BUPRENORPHINE HC2 MG PO (12:53)
[2020-10-25 12:58] LABS: U Amphetamine Screen Not Detected; U Barbituate Screen Not Detected; U Benzodiazapine Screen Not Detected; U Buprenorphine Screen DETECTED; U Cannabinoids Screen Not Detected; U Cocaine Screen Not Detected; U Methadone Screen Not Detected; U Methamphetamine Screen Not Detected; U Opiates Screen Not Detected; U Oxycodone Screen Not Detected; U Phencyclidine Screen Not Detected; U Propoxyphene Screen Not Detected
[2020-10-25 13:15] LABS: Influenza A, PCR NEGATIVE (NEGATIVE); Influenza B, PCR NEGATIVE (NEGATIVE); Resp Syncytial Virus, PCR NEGATIVE (NEGATIVE); SARS-Cov-2 (COVID-19) PCR, MMC NEGATIVE (NEGATIVE)
[2020-10-26 22:07] LABS: BASOPHILS ABSOLUTE AUTO 0.04 K/mm3 (0.00-0.23); BASOPHILS PERCENT AUTO 0 % (0-2); EOSINOPHILS ABSOLUTE AUTO 0.02 K/mm3 (0.00-0.68); EOSINOPHILS PERCENT AUTO 0 % (0-6); Hematocrit 30.1 % (33.0-51.0); Hemoglobin 9.9 g/dL (11.5-16.0); IMMATURE GRAN ABSOLUTE AUTO 0.11 K/mm3 (0.00-0.10); IMMATURE GRAN PERCENT AUTO 1 % (0-1); LYMPHOCYTES ABSOLUTE AUTO 0.67 K/mm3 (0.84-5.20); LYMPHOCYTES PERCENT AUTO 3 % (21-46); MONOCYTES ABSOLUTE AUTO 1.24 K/mm3 (0.16-1.47); MONOCYTES PERCENT AUTO 5 % (4-13); Mean Corpuscular HGB 29.9 pg (26.0-34.0); Mean Corpuscular HGB Conc 32.9 g/dL (31.5-36.5); Mean Corpuscular Volume 91 fL (80-100); Mean Platelet Volume 11.9 fL (9.1-12.4); NEUTROPHILS ABSOLUTE AUTO 22.36 K/mm3 (1.96-9.15); NEUTROPHILS PERCENT AUTO 91 % (41-73); Platelet Count 211 K/mm3 (150-400); RDW Coefficient Variation 13.4 % (11.7-14.2); RDW Standard Deviation 44.9 fL (35.1-46.3); Red Blood Cell Count 3.31 M/mm3 (3.80-5.20); White Blood Cell Count 24.44 K/mm3 (4.00-11.30)
--- NOTE | 2020-10-27 03:35 | NUR ---
ASSUMED CARE OF PT. SHE HAS PUMPED APPOX 4ML EBM. DISCUSSED POC AND PROVIDED BREAST PADS. WILL CONTINUE TO MONITOR.
[2020-10-27 05:16] LABS: Hematocrit 25.2 % (33.0-51.0); Hemoglobin 8.3 g/dL (11.5-16.0); Mean Corpuscular HGB 30.2 pg (26.0-34.0); Mean Corpuscular HGB Conc 32.9 g/dL (31.5-36.5); Mean Corpuscular Volume 92 fL (80-100); Mean Platelet Volume 11.5 fL (9.1-12.4); Platelet Count 213 K/mm3 (150-400); RDW Coefficient Variation 13.6 % (11.7-14.2); RDW Standard Deviation 44.4 fL (35.1-46.3); Red Blood Cell Count 2.75 M/mm3 (3.80-5.20); White Blood Cell Count 31.13 K/mm3 (4.00-11.30)
--- NOTE | 2020-10-27 07:00 | NUR ---
SHIFT SUMMARY PT HAS BEEN SLEEPING ON AND OFF. SHE IS AWAKENED FOR 0600 MEDICATIONS AND REPORTS 7/10 PAIN, BUT FALLS BACK ASLEEP AFTER. VS WNL. REPORT GIVEN TO ONCOMING SHIFT.
--- NOTE | 2020-10-27 07:30 | NUR ---
PT UP IN ROOM STANDING, WANTING TO GO TO NRSY. PAD CHANGED. PT UP TO WC AND TO NRSY TO SEE .
--- NOTE | 2020-10-27 08:23 | NUR ---
RT AT BEDSIDE
--- NOTE | 2020-10-27 10:37 | NUR ---
0918 SPOKE WITH HUMBERTO WILKINS FROM [facility]. NOTIFIED OF PATIENTS ADMISSION. SHE SAID THE CASE WOULD BE ASSIGNED AND THE MIRROR SILVERER WOULD CALL
--- NOTE | 2020-10-27 12:12 | NUR ---
PUMP PRESCRIBED FOR PT. INSTRUCT/DEM HOW TO USE MEDELA BREAST PUMP. PT VERBALIZED UNDERSTANDING, DENIES ANY FURTHER QUESTIONS OR CONCERNS. FURTHER LC OFFERED IF PT DESIRES.
--- NOTE | 2020-10-28 05:48 | NUR ---
PT RESTING WITH SPOUSE AT BEDSIDE. ABX INFUSING PER ORDERS. HAS CALL LIGHT IN REACH.
--- NOTE | 2020-10-28 13:30 | NUR ---
PT TO BERTO TO FEED
--- NOTE | 2020-10-28 16:36 | NUR ---
UP TO [facility] TO FEED BABY
--- NOTE | 2020-10-28 23:46 | NUR ---
ASSUMED CARE PT FROM [facility] AT APPROX 2240 TODAY. PT AMBULATING IND, DENIES PAIN AND REPORTS MIN BLEEDING. IS CURRENTLY IN NURSERY FEEDING NB
--- NOTE | 2020-10-29 05:14 | NUR ---
PT PUMPING. DENIES NEEDS.
[2020-10-29] MEDS ORDERED: IBUP800 (09:47)
[2020-10-29] MEDS ORDERED: OXYC5 (09:47)
--- NOTE | 2020-10-29 13:36 | NUR ---
BREASTFEEING ASSIST RN REPORTS BOTTLE FEEDING TODAY BABY IS GETTING TO STRESSED WITH . MOM INSTRUCTED TO PUMP AT LEAST Q 3 HOURS WORKING UP TO 20-30 MINUTES. MOM PUMPED 5 CC WIHICH BABY DRANK THEN 30 CC FO INTO SAME BOTTLE. DISCUSSED PACED BOTTLE FEEDING. EDUCATION RESOURCE INFORMATION GIVEN.
--- NOTE | 2020-10-29 16:34 | NUR ---
D/C TO BOARDER STATUS
== END 2020-10-29 17:00 | disposition home or self-care (01) | DRG 786 ==
LOC: BC 09:27 → OBS 09:27 → BC 12:21
PROVIDERS: Obstetrics & Gynecology; ADMIT Obstetrics & Gynecology
PROC: 3E033VJ Introduction of Other Hormone into Peripheral Vein, Percutaneous Approach (ICD-10-PCS; 2020-10-25)
PROC: 10907ZC Drainage of Amniotic Fluid, Therapeutic from Products of Conception, Via Natural or Artificial Opening (ICD-10-PCS; 2020-10-25)
PROC: 10H07YZ Insertion of Other Device into Products of Conception, Via Natural or Artificial Opening (ICD-10-PCS; 2020-10-25)
PROC: 10D00Z1 Extraction of Products of Conception, Low, Open Approach (ICD-10-PCS; principal; 2020-10-26 21:30)
DX: O14.04 Mild to moderate pre-eclampsia, complicating childbirth (principal); K83.1 Obstruction of bile duct; O41.1230 Chorioamnionitis, third trimester, not applicable or unspecified; F11.20 Opioid dependence, uncomplicated; O64.9XX0 Obstructed labor due to malposition and malpresentation, unspecified, not applicable or unspecified; O26.62 Liver and biliary tract disorders in childbirth; O76 Abnormality in fetal heart rate and rhythm complicating labor and delivery; Z20.822 Contact with and (suspected) exposure to COVID-19; O99.324 Drug use complicating childbirth; O69.81X0 Labor and delivery complicated by cord around neck, without compression, not applicable or unspecified; O99.344 Other mental disorders complicating childbirth; F32.9 Major depressive disorder, single episode, unspecified; Z3A.38 38 weeks gestation of pregnancy; Z37.0 Single live birth; O99.334 Smoking (tobacco) complicating childbirth; F17.210 Nicotine dependence, cigarettes, uncomplicated; O63.1 Prolonged second stage (of labor); O35.8XX0 Maternal care for other (suspected) fetal abnormality and damage, not applicable or unspecified
CPT/HCPCS: 0241U; 36415; 51702; 59025; 80053; 82570; 84156; 85007; 85025; 85027; 86850; 86900; 86901; 88307; 88312; 94640; 94760; A9270; G0480; J0290; J0456; J0690; J0694; J1580; J1885; J2001; J2210; J2370; J2405; J2590; J2704; J2765; J3010; J7050; J7120

== ENCOUNTER → 2020-11-02 | Outpatient (CLI) | payer OTHER ==
[~2020-11-02] MED LIST changes: +BUPRENORPHINE HC2 MG PO; +IBUP800; +OXYC5
[2020-11-02 17:25] LABS: Source, Urine Voided
[2020-11-02 18:55] LABS: Appearance, Urine Clear (Clear); Bilirubin, Urine Neg (Neg); Blood, Urine 5+ (Neg); Color, Urine Yellow (P-Yellow); Glucose Qualitative, Urine Neg (Neg); Ketones, Urine Neg (Neg); Leukocyte Esterase, Urine 3+ (Neg); Nitrite, Urine Neg (Neg); Protein, Urine Neg (Neg); Urobilinogen, Urine NORM (Normal); pH, Urine 6.5 (5.0-8.0)
[2020-11-02 19:15] LABS: Red Blood Cells, Urine 0-2 /hpf (0-2)
[2020-11-02 19:16] LABS: Bacteria Few /hpf; Squamous Epithelial Cells Mod /hpf (Few)
== END | disposition home or self-care (01) ==
LOC: LAB 16:49 → LAB SHORT 16:49
PROVIDERS: Advanced Practice Midwife
DX: R30.9 Painful micturition, unspecified (principal)
CPT/HCPCS: 81001; 87077; 87086; 87186

== ENCOUNTER 2021-01-25 05:08 | Emergency (ER) | payer OTHER ==
[~2021-01-25] VITALS: Ht 162.6 cm; Wt 90.7 kg
== END 2021-01-25 05:35 | disposition home or self-care (01) ==
LOC: ER 05:08
DX: F41.9 Anxiety disorder, unspecified (principal); F17.210 Nicotine dependence, cigarettes, uncomplicated; Z88.6 Allergy status to analgesic agent; Z88.8 Allergy status to other drugs, medicaments and biological substances; Z79.899 Other long term (current) drug therapy
CPT/HCPCS: 99283

== ENCOUNTER → 2021-05-25 | Outpatient (CLI) | payer OTHER ==
[2021-05-25 17:18] LABS: U Amphetamine Screen DETECTED; U Barbituate Screen Not Detected; U Benzodiazapine Screen Not Detected; U Buprenorphine Screen DETECTED; U Cannabinoids Screen Not Detected; U Cocaine Screen Not Detected; U Methadone Screen Not Detected; U Methamphetamine Screen Not Detected; U Opiates Screen Not Detected; U Oxycodone Screen Not Detected; U Phencyclidine Screen Not Detected
[2021-05-25 17:19] LABS: U Propoxyphene Screen Not Detected
[2021-05-26 10:35] LABS: Candida species (DNA Probe) Negative (NEGATIVE); G. vaginalis (DNA Probe) Positive (NEGATIVE); T. vaginalis (DNA Probe) Negative (NEGATIVE)
[2021-05-27 01:11] LABS: CHLAMYDIA TRACHOMATIS, NAA Negative (Negative)
== END ==
LOC: LAB 15:43 → LAB SHORT 15:43
PROVIDERS: Nurse Practitioner Family
DX: N89.8 Other specified noninflammatory disorders of vagina (principal); Z20.2 Contact with and (suspected) exposure to infections with a predominantly sexual mode of transmission; Z79.891 Long term (current) use of opiate analgesic
CPT/HCPCS: 87480; 87491; 87510; 87591; 87660

== ENCOUNTER → 2021-07-21 | Outpatient (CLI) | payer OTHER | END | disposition home or self-care (01) | LOC: LAB SHORT 14:40 | DX: L08.0 Pyoderma (principal) | CPT/HCPCS: 87070; 87205 ==

== ENCOUNTER → 2021-10-22 | Outpatient (CLI) | payer OTHER ==
[~2021-10-22] MED LIST changes: +MUPIROCIN1 G1 TOP; +Neurontin 100100 MG PO
[2021-10-22 18:26] LABS: BASOPHILS ABSOLUTE AUTO 0.03 K/mm3 (0.00-0.23); BASOPHILS PERCENT AUTO 1 % (0-2); EOSINOPHILS PERCENT AUTO 6 % (0-6); Hematocrit 36.7 % (33.0-51.0); Hemoglobin 12.1 g/dL (11.5-16.0); IMMATURE GRAN ABSOLUTE AUTO 0.01 K/mm3 (0.00-0.10); IMMATURE GRAN PERCENT AUTO 0 % (0-1); LYMPHOCYTES ABSOLUTE AUTO 1.82 K/mm3 (0.84-5.20); LYMPHOCYTES PERCENT AUTO 34 % (21-46); MONOCYTES ABSOLUTE AUTO 0.65 K/mm3 (0.16-1.47); MONOCYTES PERCENT AUTO 12 % (4-13); Mean Corpuscular HGB 28.8 pg (26.0-34.0); Mean Corpuscular Volume 87 fL (80-100); Mean Platelet Volume 11.2 fL (9.1-12.4); NEUTROPHILS ABSOLUTE AUTO 2.55 K/mm3 (1.96-9.15); NEUTROPHILS PERCENT AUTO 48 % (41-73); Platelet Count 298 K/mm3 (150-400); RDW Coefficient Variation 13.5 % (11.7-14.2); RDW Standard Deviation 43.3 fL (35.1-46.3); White Blood Cell Count 5.36 K/mm3 (4.00-11.30)
== END ==
LOC: LAB SHORT 17:20 → LAB 17:20
PROVIDERS: Physician Assistant
DX: L08.9 Local infection of the skin and subcutaneous tissue, unspecified (principal)
CPT/HCPCS: 85025; 87070; 87205

== ENCOUNTER 2021-12-05 19:22 | Emergency (ER) | payer OTHER ==
[~2021-12-05] VITALS: Ht 162.6 cm; Wt 90.7 kg
[~2021-12-05 19:22] MED LIST changes: -MUPIROCIN1 G1 TOP; -Neurontin 100100 MG PO
[2021-12-05] MEDS ORDERED: MUPIROCIN1 G1 TOP (20:43)
== END 2021-12-05 21:03 | disposition home or self-care (01) ==
LOC: ER 19:22
DX: O26.891 Other specified pregnancy related conditions, first trimester (principal); R10.9 Unspecified abdominal pain; O99.334 Smoking (tobacco) complicating childbirth; F17.210 Nicotine dependence, cigarettes, uncomplicated; O99.341 Other mental disorders complicating pregnancy, first trimester; F11.11 Opioid abuse, in remission; F15.11 Other stimulant abuse, in remission; F32.9 Major depressive disorder, single episode, unspecified; F41.9 Anxiety disorder, unspecified; Z79.899 Other long term (current) drug therapy; Z3A.10 10 weeks gestation of pregnancy; Z88.5 Allergy status to narcotic agent; Z88.8 Allergy status to other drugs, medicaments and biological substances
CPT/HCPCS: 99283

== ENCOUNTER 2022-01-12 19:45 | Emergency (ER) | payer OTHER ==
[~2022-01-12] VITALS: Ht 162.6 cm; Wt 90.7 kg
[~2022-01-12 19:45] MED LIST changes: +MUPIROCIN1 G1 TOP
[2022-01-12] MEDS ORDERED: SULTRIDS PO (20:52)
== END 2022-01-12 21:18 | disposition home or self-care (01) ==
LOC: ER 19:45
DX: L01.00 Impetigo, unspecified (principal); F32.9 Major depressive disorder, single episode, unspecified; F17.210 Nicotine dependence, cigarettes, uncomplicated; Z79.899 Other long term (current) drug therapy; Z88.5 Allergy status to narcotic agent; Z88.8 Allergy status to other drugs, medicaments and biological substances
CPT/HCPCS: A9270

== ENCOUNTER 2022-01-23 19:12 | Emergency (ER) | payer OTHER ==
[~2022-01-23] VITALS: Ht 162.6 cm; Wt 90.7 kg
[2022-01-23] MEDS ORDERED: Neurontin 100100 MG PO (20:16)
[2022-01-23] MEDS ORDERED: Neurontin 300300 MG PO (20:16)
== END 2022-01-23 21:01 | disposition home or self-care (01) ==
LOC: ER 19:12
DX: Z76.0 Encounter for issue of repeat prescription (principal); Z88.8 Allergy status to other drugs, medicaments and biological substances; Z79.899 Other long term (current) drug therapy; Z87.891 Personal history of nicotine dependence
CPT/HCPCS: 99281; A9270

== ENCOUNTER 2022-06-06 12:15 | Inpatient (IN) | payer OTHER ==
[~2022-06-06 12:15] MED LIST changes: +Neurontin 100100 MG PO
[2022-06-06 12:58] LABS: BASOPHILS ABSOLUTE AUTO 0.05 K/mm3 (0.00-0.23); BASOPHILS PERCENT AUTO 1 % (0-2); EOSINOPHILS ABSOLUTE AUTO 0.06 K/mm3 (0.00-0.68); EOSINOPHILS PERCENT AUTO 1 % (0-6); Hematocrit 34.6 % (33.0-51.0); Hemoglobin 10.5 g/dL (11.5-16.0); IMMATURE GRAN PERCENT AUTO 2 % (0-1); LYMPHOCYTES ABSOLUTE AUTO 1.33 K/mm3 (0.84-5.20); LYMPHOCYTES PERCENT AUTO 12 % (21-46); MONOCYTES ABSOLUTE AUTO 0.96 K/mm3 (0.16-1.47); MONOCYTES PERCENT AUTO 9 % (4-13); Mean Corpuscular HGB 26.7 pg (26.0-34.0); Mean Corpuscular HGB Conc 30.3 g/dL (31.5-36.5); Mean Corpuscular Volume 88 fL (80-100); Mean Platelet Volume 11.7 fL (9.1-12.4); NEUTROPHILS ABSOLUTE AUTO 8.12 K/mm3 (1.96-9.15); NEUTROPHILS PERCENT AUTO 76 % (41-73); Platelet Count 237 K/mm3 (150-400); RDW Coefficient Variation 17.5 % (11.7-14.2); Red Blood Cell Count 3.93 M/mm3 (3.80-5.20); White Blood Cell Count 10.72 K/mm3 (4.00-11.30)
[2022-06-07 07:22] LABS: Hematocrit 21.6 % (33.0-51.0); Hemoglobin 6.7 g/dL (11.5-16.0); Mean Corpuscular HGB 27.3 pg (26.0-34.0); Mean Corpuscular Volume 88 fL (80-100); Mean Platelet Volume 12.2 fL (9.1-12.4); Platelet Count 217 K/mm3 (150-400); RDW Coefficient Variation 17.2 % (11.7-14.2); RDW Standard Deviation 50.9 fL (35.1-46.3); Red Blood Cell Count 2.45 M/mm3 (3.80-5.20); White Blood Cell Count 12.32 K/mm3 (4.00-11.30)
--- NOTE | 2022-06-07 08:23 | NUR ---
IV flushed, given zofran for nausea. 1 percocet given. Labs reviewed with pt, will not take out IV yet. Wrapped with tamperproof tape and ports covered. Inqiring with charge about UA from yesterday that was obtianed prior to any meds given by L&D RN Kacie Webber RN. Per Robina Sanchez RN walked up the urine, apparently there was an order, but the paper that goes over the lid that has lauren pt's initals was not placed by [facility]. so it wasn't a vailid speciman. Then the lab cancelled the order and the specimine was tossed. [facility] was notified, but didn't obtain another urine. SO no results are on the chart, when I looked today.
--- NOTE | 2022-06-07 11:43 | NUR ---
CWP HERE IN UNIT TALKING WITH PT AND . SECURITY HERE ON UNIT, PLANNING TO TAKE CUSTODY, CWP CURRENTLY HAS CUSTODY OF OTHER CHILDREN. WORKER ANJELICA IS HERE, COPY OF BADGE TAKEN AND PLACED IN CHART.
[2022-06-07] MEDS ORDERED: IRON18 MG PO (11:46)
[2022-06-07] MEDS ORDERED: TRAM50 PO (11:46)
--- NOTE | 2022-06-07 12:30 | NUR ---
ALL DC INSTRUCTIONS GONE OVER WITH PT AND SO. ALL QUESTIONS ANSWERED. PT REPORTS FEELING WELL AFTER IRON INFUSION. BLEEDING IS MUCH LESS, PT OUT TO SMOKE LOTS. A BIT SAD AFTER CWP UPDATED ON PLAN. PT DC HOME WITH SO.
== END 2022-06-07 12:35 | disposition home or self-care (01) | DRG 806 ==
LOC: OBS 12:15 → BC 12:16 → OBS 12:21 → BC 12:24
PROVIDERS: Advanced Practice Midwife; ADMIT Nurse Practitioner Obstetrics & Gynecology
PROC: 10E0XZZ Delivery of Products of Conception, External Approach (ICD-10-PCS; principal; 2022-06-06)
DX: O60.14X0 Preterm labor third trimester with preterm delivery third trimester, not applicable or unspecified (principal); O99.324 Drug use complicating childbirth; Z37.0 Single live birth; O34.211 Maternal care for low transverse scar from previous cesarean delivery; F15.10 Other stimulant abuse, uncomplicated; O99.334 Smoking (tobacco) complicating childbirth; F17.210 Nicotine dependence, cigarettes, uncomplicated; O09.513 Supervision of elderly primigravida, third trimester; O99.344 Other mental disorders complicating childbirth; F32.A Depression, unspecified; O77.0 Labor and delivery complicated by meconium in amniotic fluid; O90.81 Anemia of the puerperium; Z3A.33 33 weeks gestation of pregnancy; Z79.891 Long term (current) use of opiate analgesic; Z79.899 Other long term (current) drug therapy
CPT/HCPCS: 36415; 36416; 59025; 76815; 85025; 85027; 86850; 86900; 86901; 86923; 87081; 87150; A9270; J0290; J1885; J2405; J2590; J2916; J3010; J7120

== ENCOUNTER 2023-08-25 18:58 | Emergency (ER) | payer OTHER ==
[~2023-08-25] VITALS: Ht 162.6 cm; Wt 86.2 kg
[~2023-08-25 18:58] MED LIST changes: +IRON18 MG PO
[2023-08-25 19:14] VITALS: BP 148/95
== END 2023-08-25 21:11 | disposition left against medical advice (07) ==
LOC: ER 18:58
DX: M54.9 Dorsalgia, unspecified (principal); Z53.21 Procedure and treatment not carried out due to patient leaving prior to being seen by health care provider
CPT/HCPCS: 71046; 99283-25

== ENCOUNTER 2025-07-08 20:36 | Emergency (ER) | payer OTHER ==
[~2025-07-08] VITALS: Ht 162.6 cm; Wt 86.2 kg
[~2025-07-08 20:36] MED LIST changes: +DESV50 PO; +ERYT.5TO RIGHTEYE; +HYDHCL25 PO; +METPHE20 PO; +Mupirocin22 GM TOP; +Neurontin800 MG PO; +ZUBSOLV SL
[2025-07-08 21:01] LABS: BASOPHILS ABSOLUTE AUTO 0.07 K/mm3 (0.00-0.23); BASOPHILS PERCENT AUTO 2 % (0-2); EOSINOPHILS ABSOLUTE AUTO 0.53 K/mm3 (0.00-0.68); EOSINOPHILS PERCENT AUTO 13 % (0-6); Hematocrit 33.5 % (33.0-51.0); Hemoglobin 10.9 g/dL (11.5-16.0); IMMATURE GRAN ABSOLUTE AUTO 0.02 K/mm3 (0.00-0.10); IMMATURE GRAN PERCENT AUTO 1 % (0-1); LYMPHOCYTES ABSOLUTE AUTO 1.81 K/mm3 (0.84-5.20); LYMPHOCYTES PERCENT AUTO 43 % (21-46); MONOCYTES ABSOLUTE AUTO 0.38 K/mm3 (0.16-1.47); MONOCYTES PERCENT AUTO 9 % (4-13); Mean Corpuscular HGB Conc 32.5 g/dL (31.5-36.5); Mean Corpuscular Volume 89 fL (80-100); NEUTROPHILS ABSOLUTE AUTO 1.40 K/mm3 (1.96-9.15); NEUTROPHILS PERCENT AUTO 33 % (41-73); NRBC ABSOLUTE 0.00 K/mm3 (0.00-0.02); NRBC Auto 0.0 /100 WBC (0.0-0.2); Platelet Count 240 K/mm3 (150-400); RDW Coefficient Variation 12.7 % (11.7-14.2); RDW Standard Deviation 41.4 fL (35.1-46.3)
[2025-07-08 21:27] LABS: Alanine Aminotransfer (ALT/SGP 123.0 U/L (12-78); Albumin, Blood 3.3 g/dL (3.4-5.0); Albumin/Globulin Ratio 0.8 (0.8-1.8); Anion Gap 7.0 mmol/L (3-11); Aspartate Aminotrans (AST/SGOT 69.0 U/L (12-37); Bilirubin, Total 0.3 mg/dL (0.1-1.0); Blood Urea Nitrogen 12.0 mg/dL (8-24); CO2, Blood 31.0 mmol/L (21-32); Calcium, Blood 9.3 mg/dL (8.5-10.1); Chloride, Blood 106.0 mmol/L (98-108); Creatinine, Blood 0.65 mg/dL (0.40-1.00); Globulin, Blood 3.9 g/dL (2.2-4.0); Glucose, Blood 83.0 mg/dL (70-99); Potassium, Blood 3.6 mmol/L (3.5-5.5); Sodium, Blood 140.0 mmol/L (136-145); Total Protein, Blood 7.2 g/dL (6.4-8.2)
[2025-07-08 22:30] VITALS: BP 127/87
== END 2025-07-08 22:41 | disposition home or self-care (01) ==
LOC: ER 20:36
PROVIDERS: Emergency Medicine
DX: R20.2 Paresthesia of skin (principal); Z79.899 Other long term (current) drug therapy
CPT/HCPCS: 70450; 80053; 85025; 93005; 93010; 99284-25

== ENCOUNTER 2025-07-09 19:17 | Emergency (ER) | payer OTHER ==
[~2025-07-09] VITALS: Ht 162.6 cm; Wt 86.2 kg
[2025-07-09 19:22] VITALS: BP 115/80
== END 2025-07-09 20:49 | disposition left against medical advice (07) ==
LOC: ER 19:17
DX: R20.0 Anesthesia of skin (principal); M54.9 Dorsalgia, unspecified; Z53.21 Procedure and treatment not carried out due to patient leaving prior to being seen by health care provider